=== PATIENT | male | born 1985 | race Two or more races ===

== ENCOUNTER 2019-02-11 21:11 | Emergency (ER) | payer OTHER ==
[2019-02-11 21:20] VITALS: BP 151/106
[2019-02-11] MEDS ORDERED: INDOMETHACIN 50 MG CAPSULE PO ONE (22:47)
[2019-02-11] MEDS ORDERED: COLCHICINE 0.6 MG TABLET PO ONE ×2 (22:47→23:31)
--- NOTE | 2019-02-11 23:36 | ER Document Report ---
ED General - General Chief Complaint: Foot Pain Stated Complaint: FOOT PAIN Time Seen by Provider: 02/11/19 22:39 Notes: Patient is a 33-year-old male who presents with complaint of a gout flare. He says he has a history of gout. He takes allopurinol to help prevent gout flares. The last 1-2 days he denies pain to his left ankle. This is a typical area where he gets gout flares. He denies any pain anywhere else. No fevers. Recent trauma or injuries to the foot or ankle. He is currently visiting from [place]. TRAVEL OUTSIDE OF THE [place] IN LAST 30 DAYS: No - Related Data Allergies/Adverse Reactions: No Known Allergies Allergy (Unverified 02/11/19 21:16) Past Medical History - Social History Smoking Status: Unknown if Ever Smoked Frequency of alcohol use: None Drug Abuse: None Family History: Reviewed & Not Pertinent Review of Systems - Review of Systems Notes: My Normal Review Basic REVIEW OF SYSTEMS: CONSTITUTIONAL : Denies fever, chills, or sweats. Denies recent illness. MUSCULOSKELETAL: Left ankle pain SKIN: Denies rash or skin lesions. NEUROLOGICAL: Denies sensory or motor loss. ALL OTHER SYSTEMS REVIEWED AND NEGATIVE. Physical Exam - Vital signs Vitals: Temp Pulse Resp BP Pulse Ox 98.9 F 94 18 151/106 H 95 02/11/19 21:16 02/11/19 21:16 02/11/19 21:16 02/11/19 21:16 02/11/19 21:16 - Notes Notes: General Appearance: Well nourished, alert, cooperative, no acute distress, mild obvious discomfort. Vitals: reviewed, See vital signs table. Head: no swelling or tenderness to the head Eyes: PERRL, EOMI, Conjuctiva clear Extremities: strength 5/5 in all extremities, good pulses in all extremities, mild swelling to the left ankle. No abnormal redness or warmth. No signs of infection. Pain to palpation over the ankle. Remainder foot and leg are nontender. Skin: warm, dry, appropriate color, no rash Neuro: speech clear, oriented x 3, normal affect, responds appropriately to questions. Course - Re-evaluation Re-evalutation: 02/12/19 00:16 Patient is on allopurinol. I informed him not to take this until his gout exacerbation is finished. I did give him the 1.2 mg dose of colchicine followed by the 0.6 mg dose an hour later. I will place him on indomethacin. Patient speaks some [place] but is limited. Patient's friend at bedside is fluid in both [place] and [place]ian and therefore he did help translate for me to make sure he is understanding of this. Also wrote all his discharge instructions in [place] and then had them translated to Slovenian in the discharge instructions as well. I encouraged him return to ER if he has fevers, worsening swelling, or if he has further concerns. I did offer crutches so he is not having bear weight on his ankle patient refuses crutches. Dictation of this chart was performed using voice recognition software; therefore, there may be some unintended grammatical errors. - Vital Signs Vital signs: Temp Pulse Resp BP Pulse Ox 98.9 F 94 18 151/106 H 95 02/11/19 21:16 02/11/19 21:16 02/11/19 21:16 02/11/19 21:16 02/11/19 21:16 Discharge - Discharge Clinical Impression: Gout, Ankle pain, left Condition: Good Disposition: HOME, SELF-CARE Additional Instructions: Please do not take the allopurinol until you have been pain free for at least 4 days. Please follow up with your doctor in 3-5 days. please return to the ER immediately if you develop fevers, redness to your leg, or increasing swelling. I have prescribed Indomethacin for the pain. Please take this with food so it does not irritate your stomach. Do not take other NSAID medicaitons such as Aspi rin, Motrin, Ibuprofen, Aleve, or Advil when taking the Indomethacin. It is okay to take Tylenol. No tome el alopurinol hasta que haya estado sin dolor herminio al menos 4 brian. Por favor carmen un seguimiento con garza mdico en 3-5 brian. regrese a la steve de emergencias inmediatamente si presenta fiebre, enrojecimiento de la pierna o aumento de la hinchazn. He prescrito indometacina para el dolor. Por favor, tome esto con alimentos para que no irrite garza estmago. No tome otros medicamentos RITIKA martinez la aspirina, Motrin, ibuprofeno, Aleve o Advil cuando tome la indometacina. Est carol carroll Tylenol. Prescriptions: RX: Indomethacin 50 mg PO TID PRN #15 capsule PRN Reason: gout pain
== END 2019-02-12 00:03 | disposition home or self-care (01) ==
LOC: ER 21:11
DX: M10.9 Gout, unspecified (principal); M25.572 Pain in left ankle and joints of left foot; Z79.899 Other long term (current) drug therapy
CPT/HCPCS: 99283; J3490